=== PATIENT | female | born 1985 | race Hispanic/Latino ===

== ENCOUNTER 2017-08-25 16:56 | Emergency (ER) | payer OTHER ==
[2017-08-25 17:47] LABS: Urine Blood NEGATIVE (NEG); Urine Glucose 2+ (NEG); Urine Protein NEGATIVE (NEG); Urine Specific Gravity 1.015 (1.005-1.030)
[2017-08-25 18:01] LABS: Absolute Lymphocytes (CBC) 1.6 K/uL (0.7-4.9); Absolute Monocytes 0.4 K/uL (0.1-1.3); Absolute Neutrophil 3.1 K/uL (1.8-8.0); Basophils % 0.1 % (0-1.3); Eosinophils % 0.8 % (0-4.4); Hematocrit 42.4 % (36.0-45.0); Lymphocytes % 31.4 % (15.3-44.8); MCH 26.9 pg (27.0-35.0); MCV 81.5 fL (80-100); MPV 8.6 fL (7.6-11.3); Monocytes % 8.4 % (3.3-12.3)
[2017-08-25 18:42] LABS: BUN Blood Urea Nitrogen 14 mg/dL (7-18); Bicarbonate 26 mmol/L (21-32); Glucose Level 327 mg/dL (74-106); HCG, Quantitative 1086 mIU/mL (1-3); Potassium 3.7 mmol/L (3.5-5.1); Sodium Level 135 mmol/L (136-145)
--- NOTE | 2017-08-25 21:38 | ER ---
Nurse's Notes [facility] Name: Tatiana Rouse Age: 31 yrs Sex: Female : 1985 Arrival Date: 08/25/2017 Time: 16:59 Bed 24 Private MD: None, None Diagnosis: Threatened Presentation: 08/25 17:07 Presenting complaint: Patient states: Cramping for the past 3 days, today it became aj1 severe and she began to have vaginal bleeding light pink to bright red bleeding that is intermittent. States that she has had a positive test at home, but her appointment with her OB isnt for 2 weeks. States that she believes she is approximately 8 weeks . Transition of care: patient was not received from another setting of care. Onset of symptoms was August 22, 2017. Risk Assessment: Do you want to hurt yourself or someone else? Patient reports no desire to harm self or others. Initial Sepsis Screen: Does the patient meet any 2 criteria? No. Patient's initial sepsis screen is negative. Does the patient have a suspected source of infection? No. Patient's initial sepsis screen is negative. Care prior to arrival: None. 17:07 Method Of Arrival: Ambulatory aj1 17:07 Acuity: WARREN 3 aj1 Triage Assessment: 17:10 General: Appears in no apparent distress. uncomfortable, Behavior is calm, cooperative, aj1 appropriate for age. Pain: Complains of pain in suprapubic area, right lower quadrant and left lower quadrant Pain radiates to back Pain currently is 8 out of 10 on a pain scale. Quality of pain is described as crampy, Pain began 2-3 days ago. Is intermittent. Neuro: Level of Consciousness is awake, alert, obeys commands, Oriented to person, place, time, situation, Speech is normal, Facial symmetry appears normal. Cardiovascular: Patient's skin is warm and dry. Respiratory: Airway is patent Respiratory effort is even, unlabored, Respiratory pattern is regular, symmetrical. : Reports urinary frequency, vaginal bleeding that is Denies burning with urination. 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 - Social history:: Smoking status: Patient uses tobacco products, 3- 4 cigarettes per day. - Ebola Screening: : Patient denies travel to an Ebola-affected area in the 21 days before illness onset. Screenin:29 Abuse screen: Denies threats or abuse. Denies injuries from another. Nutritional ed1 screening: No deficits noted. Tuberculosis screening: No symptoms or risk factors identified. Fall Risk None identified. Assessment: 17:29 Obstetrical Assessment: General assessment: awake and alert, skin warm and dry, ed1 respirations even and unlabored, Patient reports abdominal cramping, vaginal bleeding. General: Appears uncomfortable, Behavior is calm, cooperative. Pain: Complains of pain in left lower quadrant and right lower quadrant and suprapubic area Pain radiates to back Pain currently is 8 out of 10 on a pain scale. Quality of pain is described as crampy, Pain began 1 day ago. Is continuous. Neuro: Level of Consciousness is awake, alert, obeys commands, Oriented to person, place, time, situation. Cardiovascular: Denies chest pain, Heart tones S1 S2 present. Respiratory: Airway is patent Respiratory effort is even, unlabored, Respiratory pattern is regular, symmetrical, Breath sounds are clear bilaterally. GI: Patient currently denies diarrhea, nausea, vomiting. : Reports vaginal bleeding that is bright red, light flow. EENT: No signs and/or symptoms were reported regarding the EENT system. Derm: Skin is pink, warm \T\ dry. 17:35 General: The previous assessment is accurate, call light remains within reach. . ss 18:42 Reassessment: Patient appears in no apparent distress at this time. No changes from ed1 previously documented assessment. Patient and/or family updated on plan of care and expected duration. Pain level reassessed. Patient is alert, oriented x 3, equal unlabored respirations, skin warm/dry/pink. Patient states symptoms have not improved. 19:52 Reassessment: Patient appears in no apparent distress at this time. No changes from ed1 previously documented assessment. Patient and/or family updated on plan of care and expected duration. Pain level reassessed. Patient is alert, oriented x 3, equal unlabored respirations, skin warm/dry/pink. Patient states symptoms have not improved. 21:49 Reassessment: Patient appears in no apparent distress at this time. No changes from ed1 previously documented assessment. Patient and/or family updated on plan of care and expected duration. Pain level reassessed. Patient is alert, oriented x 3, equal unlabored respirations, skin warm/dry/pink. Patient states symptoms have not improved. Vital Signs: 17:10 BP 142 / 92; Pulse 88; Resp 18; Temp 97.2; Pulse Ox 99% on R/A; Weight 89.81 kg; Height aj1 5 ft. 9 in. (175.26 cm); Pain 8/10; 18:42 BP 139 / 89; Pulse 79; Resp 18; Pulse Ox 97% on R/A; Pain 8/10; ed1 18:43 BP 139 / 89; Pulse 79; Resp 17; Pulse Ox 98% on R/A; mt 19:52 BP 129 / 86; Pulse 71; Resp 18; Pulse Ox 97% on R/A; Pain 6/10; ed1 21:21 BP 124 / 77; Pulse 66; Resp 18; Pulse Ox 97% on R/A; mt 17:10 Body Mass Index 29.24 (89.81 kg, 175.26 cm) aj1 ED Course: 16:59 Patient arrived in ED. sb2 17:00 None, None is Private Physician. sb2 17:09 Triage completed. aj1 17:10 Arm band placed on Patient placed in waiting room, Patient notified of wait time. aj1 17:23 Corinna Marquez LVN is Primary Nurse. ed1 17:27 Orlni Washington NP is PHCP. pm1 17:27 Olman Chow MD is Attending Physician. pm1 17:29 Patient has correct armband on for positive identification. Placed in gown. Bed in low ed1 position. Call light in reach. Side rails up X2. Pulse ox on. NIBP on. 17:56 Inserted saline lock: 20 gauge in right antecubital area, using aseptic technique. mt Blood collected. 18:41 1St Trimest Single 1St Fetus In Process Unspecified. EDMS 21:49 No provider procedures requiring assistance completed. IV discontinued, intact, ed1 bleeding controlled, No redness/swelling at site. Pressure dressing applied. Administered Medications: No medications were administered Outcome: 21:37 Discharge ordered by MD. pm1 21:49 Discharged to home ambulatory. ed1 21:49 Condition: good 21:49 Discharge instructions given to patient, Instructed on discharge instructions, follow up and referral plans. Demonstrated understanding of instructions, follow-up care. 21:51 Patient left the ED. ed1 Signatures: Dispatcher [employer] EDMS Amaris Hardwick, RN RN aj1 Ara Dickey RN RN Corinna Boland, TABLE TENDER TABLE TENDER ed1 Orlin Washington, KAREL BUNG REMOVER pm1 Clarissa Obando mt, Sheri sb2
--- NOTE | 2017-08-25 21:38 | EDPHYS ---
Physician Documentation [facility] Name: Tatiana Rouse Age: 31 yrs Sex: Female : 1985 Arrival Date: 08/25/2017 Time: 16:59 Bed 24 Private MD: None, None ED Physician Olman Chow HPI: 08/25 18:05 This 31 yrs old Female presents to ER via Ambulatory with complaints of pm1 Vaginal Bleeding, + Preg <12wks. 18:05 The patient presents to the emergency department with vaginal bleeding, that is light, pm1 with no clots. 18:05 The estimated gestational age is 8 weeks. course: care: none, Has pm1 appointment. Associated signs and symptoms: Pertinent positives: Abdominal cramping, Pertinent negatives: chest pain, dysuria, fever, nausea, shortness of breath, vomiting. The patient has not recently seen a physician, has an appointment scheduled, tomorrow. 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 - Social history:: Smoking status: Patient uses tobacco products, 3- 4 cigarettes per day. - Ebola Screening: : Patient denies travel to an Ebola-affected area in the 21 days before illness onset. ROS: 18:05 Constitutional: Negative for fever, chills, and weight loss, Eyes: Negative for injury, pm1 pain, redness, and discharge, ENT: Negative for injury, pain, and discharge, Neck: Negative for injury, pain, and swelling, Cardiovascular: Negative for chest pain, palpitations, and edema, Respiratory: Negative for shortness of breath, cough, wheezing, and pleuritic chest pain. 18:05 Back: Negative for injury and pain. 18:05 MS/Extremity: Negative for injury and deformity, Skin: Negative for injury, rash, and discoloration, Neuro: Negative for headache, weakness, numbness, tingling, and seizure. 18:05 Abdomen/GI: Positive for abdominal cramps, Negative for nausea, vomiting, and diarrhea. 18:05 : Positive for vaginal bleeding. Exam: 18:05 Constitutional: This is a well developed, well nourished patient who is awake, alert, pm1 and in no acute distress. Head/Face: Normocephalic, atraumatic. Chest/axilla: Normal chest wall appearance and motion. Nontender with no deformity. No lesions are appreciated. Cardiovascular: Regular rate and rhythm with a normal S1 and S2. No gallops, murmurs, or rubs. Normal PMI, no JVD. No pulse deficits. Respiratory: Lungs have equal breath sounds bilaterally, clear to auscultation and percussion. No rales, rhonchi or wheezes noted. No increased work of breathing, no retractions or nasal flaring. Abdomen/GI: Soft, non-tender, with normal bowel sounds. No distension or tympany. No guarding or rebound. No evidence of tenderness throughout. Back: No spinal tenderness. No costovertebral tenderness. Full range of motion. Skin: Warm, dry with normal turgor. Normal color with no rashes, no lesions, and no evidence of cellulitis. MS/ Extremity: Pulses equal, no cyanosis. Neurovascular intact. Full, normal range of motion. 18:05 Neuro: Orientation: is normal, Motor: is normal, moves all fours, strength is normal, strength is 5/5 in all extremities. Vital Signs: 17:10 BP 142 / 92; Pulse 88; Resp 18; Temp 97.2; Pulse Ox 99% on R/A; Weight 89.81 kg; Height aj1 5 ft. 9 in. (175.26 cm); Pain 8/10; 18:42 BP 139 / 89; Pulse 79; Resp 18; Pulse Ox 97% on R/A; Pain 8/10; ed1 18:43 BP 139 / 89; Pulse 79; Resp 17; Pulse Ox 98% on R/A; mt 19:52 BP 129 / 86; Pulse 71; Resp 18; Pulse Ox 97% on R/A; Pain 6/10; ed1 21:21 BP 124 / 77; Pulse 66; Resp 18; Pulse Ox 97% on R/A; mt 17:10 Body Mass Index 29.24 (89.81 kg, 175.26 cm) aj1 MDM: 17:27 Patient medically screened. pm1 21:31 Data reviewed: vital signs. Data interpreted: Pulse oximetry: on room air is 97 %. pm1 Interpretation: normal. Counseling: I had a detailed discussion with the patient and/or guardian regarding: the historical points, exam findings, and any diagnostic results supporting the discharge/admit diagnosis, lab results, radiology results, the need for outpatient follow up, to return to the emergency department if symptoms worsen or persist or if there are any questions or concerns that arise at home. 08/25 17:27 Order name: Quantitative Hcg; Complete Time: 19:31 pm1 08/25 17:27 Order name: Abo/rh Typing; Complete Time: 19:31 pm1 08/25 17:27 Order name: Basic Metabolic Panel; Complete Time: 19:31 pm1 08/25 17:27 Order name: CBC with Diff; Complete Time: 18:07 pm08/25 17:34 Order name: Urine Dipstick--Ancillary (enter results); Complete Time: 18:07 em1 08/25 17:34 Order name: Urine --Ancillary (enter results); Complete Time: 18:07 em1 08/25 17:27 Order name: Urine Test (obtain specimen); Complete Time: 17:58 pm1 08/25 17:27 Order name: IV Saline Lock; Complete Time: 17:57 pm1 08/25 17:27 Order name: Labs collected and sent; Complete Time: 17:57 pm08/25 17:27 Order name: NPO; Complete Time: 17:57 pm08/25 17:27 Order name: Urine Dipstick-Ancillary (obtain specimen); Complete Time: 17:57 pm1 08/25 18:37 Order name: 1St Trimest Single 1St Fetus EDMS Administered Medications: No medications were administered Disposition: 08/25/17 21:37 Discharged to Home. Impression: Threatened . - Condition is Stable. - Discharge Instructions: Threatened Miscarriage, Pelvic Rest. - Work release form, Medication Reconciliation Form, Thank You Letter form. - Follow up: Emergency Department; When: As needed; Reason: Worsening of condition. Follow up: Private Physician; When: 2 - 3 days; Reason: Recheck today's complaints, Continuance of care, Re-evaluation by your physician. - Problem is new. - Symptoms have improved. Addendum: 08/27/2017 14:52 Co-signature as Attending Physician, Olman Chow MD I agree with the assessment and w a plan of care. Signatures: Dispatcher [employer] [facility] Amaris Hardwick RN RN aj1 Corinna Marquez, QUALITY PROCESS AUDITOR QUALITY PROCESS AUDITOR ed1 Orlin Washington, SEAMING INSPECTOR SEAMING INSPECTOR pm1 Geraldo, MD MARIO Thurman mi Corrections: (The following items were deleted from the chart) 08/25 18:37 18:08 Transvaginal Ob+US.RAD.BRZ ordered. [facility] 21:51 21:37 08/25/2017 21:37 Discharged to Home. Impression: Threatened . Condition ed1 is Stable. Forms are Medication Reconciliation Form, Thank You Letter, Antibiotic Education, Prescription Opioid Use. Follow up: Emergency Department; When: As needed; Reason: Worsening of condition. Follow up: Private Physician; When: 2 - 3 days; Reason: Recheck today's complaints, Continuance of care, Re-evaluation by your physician. Problem is new. Symptoms have improved. pm1
[2017-08-25 22:19] VITALS: TEMP 97.2
[2017-08-25 22:22] VITALS: O2SAT 97
[2017-08-25 22:24] VITALS: BP 124/77
--- NOTE | 2017-08-26 08:47 | RAD REPORT ---
EXAM DESCRIPTION: US - 1St Trimest Single 1St Fetus - 08/25/2017 6:41 pm CLINICAL HISTORY: Vaginal bleeding, Preliminary findings provided at the time of the study. COMPARISON: None. FINDINGS: Due to patient body habitus, endovaginal approach was not technically adequate for visuali zation. Both ovaries are identifiable and normal in size. No dominant solid or cystic ovarian or adnexal find ing. A large bulky uterus is present measuring 14.1 x 5.7 x 8.3 cm. Myometrium is heterogeneous. Patient m ay well have fibroids but none are clearly demarcated to distinguish from the overall heterogeneous m yometrium. No free fluid or blood in the cul-de-sac. In the fundal portion of the endometrial cavity a small oval fluid collection is present. This has th e appearance of an early gestational sac. No pole or yolk sac identifiable. Average sac diamete r corresponds to a 5 week 0 day age. IMPRESSION: Oval fluid collection in the fundal endometrial cavity is believed to be an early 5 week 0 day IUP. No pole or yolk sac yet identifiable. Endometrium is prominent but no suspicious mass or hematoma identifiable. Enlarged bulky uterus with heterogeneous myometrium. Discrete myometrial mass is not identifiable. No ovarian or adnexal abnormality.
== END 2017-08-25 21:51 | disposition home or self-care (01) ==
LOC: ER 16:56
DX: O20.0 Threatened abortion (principal); E11.9 Type 2 diabetes mellitus without complications; F17.210 Nicotine dependence, cigarettes, uncomplicated; Z3A.08 8 weeks gestation of pregnancy
CPT/HCPCS: 36415; 76801; 80048; 81003; 81025; 84702; 85025; 86900; 86901; 99284

== ENCOUNTER 2024-01-17 09:01 | Emergency (ER) | payer OTHER ==
--- OUTSIDE RECORDS SUMMARY | 2024-01-17 09:06 | XMS REPORT | Continuity of Care Document ---
Author Name Unknown Address [address] [facility] [address] [place] [address] [facility] thconnect Address [address] [facility] [address] [place] [address] Care Team Providers Care Visual Communications Instructor Name Role Phone Darryl MARTIN, Keyonna Joseph Primary Care Physician Unavailable ELIGIO ANTONIO Attending Clinician Unavailable ELIZABETH DE LEON Attending Clinician Unava CONNOR Huitron Attending Clinician Unavailable Keyonna Andrews MD Attending Clinician Velma vailable LAB90 Attending Clinician Unavailable BARRY SILVA Attending Clinician Unavailable [email or web address] Attending Clinician UnavailSUSU Bai Attending Clinician Unavailable Susu Cline PA-C Attending Clinician [phone] Unknown, Attending Attending Clinician UnavailCON Peña Attending Clinician Unavailable Con Plunkett MD Attending Clinician [phone] ABHIJEET MOTT Attending Clinician Unavailable Jada Shipley DO Attending Clinician [phone] Abhijeet Mott MD Attending Clinician [phone] STARLA CARRIZALES Attending Clinician Unavailable Joaquin Ortegaia Attending Clinician [phone] UNKNOWN, ATTENDING Attending Clinician Unavailab le Doctor Unassigned, [place] Wells Attending Clinician U robyn Stovall RN, Tristan Attending Clinician Unavailab kimberly Only, Ang Db Test Attending Clinician Unavailjade Purvis SHIFT NURSE MANAGER, Karla Alvarez Attending Clinician + [phone] KARLA PURVIS Attending Clinician Unavailab kimberly Valadez RN, Naye Attending Clinician Unavailable Marty SHIFT NURSE MANAGER, Dl Attending Clinician [phone] DL BOURGEOIS Attending Clinician Unavailable EDWIN TAYLOR Attending Clinician Unavailable Singer BANUELOS, Edwin Attending Clinician [phone] Jayla DE SOUZA, Nasreen Attending Clinician Unavailable Shorty SHIFT NURSE MANAGER, Simran Attending Clinician + SIMRAN HAGEN Attending Clinician Unadinesh Troncoso RN, Rosy Aranda Attending Clinician Unavailab TATIANA Rebollar Attending Clinician Unavailable Nikhil MARTIN, Tatiana Attending Clinician [phone] Omar SHIFT NURSE MANAGER, Drew Attending Clinician [phone] DREW POTTER Attending Clinician Unavailabl MARIA LUISA Patel Attending Clinician Unavailabl NASIR Narayanan Attending Clinician Unavailab REJI Mathew Attending Clinician Unavailabl MCKINLEY Mcdowell Attending Clinician Unavaila BENJI Dick Attending Clinician Unavailable Only, Adc Test Attending Clinician Unavailable Lab, Adc Fam Pob I Attending Clinician Unavailab kimberly Merida MD, Hailee Attending Clinician [phone] Lowell SHIFT NURSE MANAGER, Shari Cortez Attending Clinician [phone] Radha Arias Attending Clinician + Amy MARTIN, Shannon Attending Clinician [phone] [facility] Attending Clinician Israel Casas MD, Hermelinda Avina Attending Clinician [phone] Edgardo SHIFT NURSE MANAGER, J Carlos Yanes Attending Clinician + [phone], David Nst Ultrasound Attending Clinician Unavailable RADHA ROLDAN Attending Clinician Unavail able ELIGIO ANTONIO Admitting Clinician Unavailable [email or web address]_S Admitting Clinician Unavaila CON Espinoza Admitting Clinician Unavailable JADA SHIPLEY Admitting Clinician Unavailab EDWIN King Admitting Clinician Unavailable Hermelinda Casas MD Admitting Clinician Payers Payer Name Policy Type Policy Number Effective Date Expirati on Date Source [employer] MEDICAID [id number] 2018 00:00:00 [employer]ET[employer] MP [employer] S[facility] 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 9 [id number] 2023 00:00:00 Problems Condition Name Condition Details Condition Category Status Onset Date Resolution Date Last Treatment Date Treating Clinician Comments Source Immunodefi ciency due to conditions classified elsewhere (multi HCC) Immunodefi ciency due to conditions classified elsewhere (multi HCC) Disease Active 03-23 00:00: 00 Yojana Seybold - Externa l Well adult exam Well adult exam Disease Active 2022-03 00:00: 00 Yojana Seybold - Externa l DM (diabetes mellitus) (multi HCC) DM (diabetes mellitus) (multi HCC) Disease Active 2022-03 00:00: 00 Yojana Seybold - Externa l Obesity Obesity Disease Active 2022-03 00:00: 00 Yojana Seybold - Externa l DM retinopath y (multi HCC) DM retinopath y (multi HCC) Disease Active 2022-03 00:00: 00 Yojana Seybold - Externa l DM type 2 with diabetic mixed hyperlipid emia (multi HCC) DM type 2 with diabetic mixed hyperlipid emia (multi HCC) Disease Active 2022-03 00:00: 00 Yojana Seybold - Externa l Overweight (BMI 25.0-29.9) Overweight (BMI 25.0-29.9) Disease Active 2022-03 00:00: 00 Yojana Seybold - Externa l Lumbar radiculopa thy Lumbar radiculopa thy Disease Active 4-13 00:00: 00 [facility] Vitamin D deficiency Vitamin D deficiency Disease Active 2019-03- 00:00: 00 [facility] Hypertrigl yceridemia Hypertrigl yceridemia Disease Active 2019-03 00:00: 00 [facility] Low TSH level Low TSH level Disease Active 2019-03 00:00: 00 [facility] History of pancreatit is History of pancreatit is Disease Active 2019-0315 00:00: 00 [facility] Tubal ligation status Tubal ligation status Disease Active 10-10 00:00: 00 [facility] History of depression History of depression Disease Active 2017-03 00:00: 00 [facility] History of back surgery History of back surgery Disease Active 11-04 00:00: 00 [facility] Erythrocyt osis Erythrocyt osis Disease Active 10-15 00:00: 00 [facility] Genital herpes Genital herpes Disease Active 03-08 00:00: 00 Overview: Formattin g of this note might be different from the original. last episode 2013 [facility] Type 2 diabetes mellitus with microalbum inuria, without long-term current use of insulin Type 2 diabetes mellitus with microalbum inuria, without long-term current use of insulin Disease Active 03-08 00:00: 00 [facility] Hypertensi on Hypertensi on Disease Active [facility] Allergies, Adverse Reactions, Alerts Allergy Name Allergy Type Status Severity Reaction(s) Onset Date Inactive Date Treating Clinician Comments Source NO KNOWN ALLERGIE S Drug Class Active [facility] Social History Social Habit Start Date Stop Date Quantity Comments Source History SDOH Alcohol Frequency [facility] History SDOH Alcohol Std Drinks [facility] History SDOH Alcohol Binge [facility] Sexual orientation Devyn Vuong - External History of tobacco use Cigarette Smoker Yojana arredondo - External ASSERTION Possible Yojana Vuong - External History of Occupation Yojana Vuong - External Cigarettes smoked current (pack per day) - Reported 2023-12-28 00:00:00 2023-12-28 00:00:00 Yojana Vuong - External Cigarette pack-years 2023-12-28 00:00:00 2023-12-28 00:00:00 Yojana Vuong - External Tobacco use and exposure 2023-12-28 00:00:00 2023-12-28 00:00:00 Smokeless tobacco non-user Yojana Vuong - External Alcoholic beverage intake 2023-12-28 00:00:00 2023-12-28 00:00:00 Current drinker of alcohol (finding) Yojana Vuong - External Alcohol intake 2023-02-17 00:00:00 2023-02-17 00:00:00 Current drinker of alcohol (finding) Yojana Vuong - External History of Social function 2023-02-17 00:00:00 2023-02-17 00:00:00 Yojana Vuong - External Education 2023-01-19 00:00:00 2023-01-19 00:00:00 13 Yojana Vuong - External Alcohol Comment 2023-01-19 00:00:00 2023-01-19 00:00:00 socially Yojana Vuong - External Sex 2022-12-10 17:52:13 2022-12-10 17:52:13 Female (finding) Yojana Vuong - External Exposure to SARS-CoV-2 (event) 2022-02-14 00:00:00 2022-02-24 23:45:00 Not sure [facility] Tobacco Comment 2017-08-26 00:00:00 2017-08-26 00:00:00 4-5 cigarretes per day [facility] Sex assigned at 1985 00:00:00 1985 00:00:00 Yojana Vuong - External Smoking Status Start Date Stop Date Source Ex-smoker 2023-12-28 00:00:00 2023-12-28 00:00:00 Devyn Vuong - External Smokes tobacco daily 2018-06-10 00:00:00 [facility] Medications Ordered Medication Name Filled Medication Name Start Date Stop Date Current Medication? Ordering Clinician Indication Dosage Frequency Signature (SIG) Comments Components Source Pseudoeph-B romphen-DM 30-2-10 MG/5ML oral Syrup 2023-03 00:00: 00 Yes [id number] 10mL Q.25D Take 10 mL by mouth 4 times daily as needed. Yojana obrien Ibuprofen (MOTRIN) 600 MG oral Tablet 2023-03 00:00: 00 Yes [id number] 600mg Q.25D Take 1 tablet (600 mg total) by mouth every 6 hours as needed for pain or fever. Yojana obrien Azithromyci n 250 MG oral Tablet 2023-03 00:00: 00 01-02 04:59 :00 Yes [id number] Take 2 tablets by mouth on day 1 then 1 tablet by mouth daily for 4 days thereafter .. Yojana obrien glipiZIDE 10 MG oral Tablet 2022-03 00:00: 00 Yes [id number] 10mg Take 1 tablet (10 mg total) by mouth in the morning and 1 tablet (10 mg total) in the evening. Take before meals. Yojana obrien Oseltamivir Phosphate 75 MG oral Capsule 2022-03 00:00: 00 Yes [id number] 75mg QD Take 1 capsule (75 mg total) by mouth daily. Yojana obrien Blood Glucose Monitoring Suppl (Blood Glucose Monitor System) w/Device does not apply Kit 2022-03 00:00: 00 Yes Check BS twice daily. Yojana obrien Glucose Blood in vitro Strip 2022-03 00:00: 00 Yes [id number] 1{each} QD 1 each by other route daily Check BS twice daily. Yojana obrien Lancets 33G does not apply Misc 2022-03 00:00: 00 Yes [id number] 1{appli cation} Q.5D 1 Applicatio n by does not apply route 2 times daily. Yojana obrien glipiZIDE 10 MG oral Tablet 2022-03 00:00: 00 Yes [id number] 10mg Take 1 tablet (10 mg total) by mouth in the morning and 1 tablet (10 mg total) in the evening. Take before meals. Yojana obrien Fenofibrate 48 MG oral Tablet 2022-03 00:00: 00 Yes [id number] 3 48mg QD Take 1 tablet (48 mg total) by mouth daily. Yojana obrien glipiZIDE 5 MG oral Tablet 2022-0316 00:00: 00 02-17 00:00 :00 No [id number] 3 5mg Take 1 tablet (5 mg total) by mouth daily (before a meal). Yojana obrien glipiZIDE 5 MG oral Tablet 2022-03 00:00: 00 Yes [id number] 3 5mg Take 1 tablet (5 mg total) by mouth daily (before a meal). Yojana obrien Glucose Blood in vitro Strip 2022-03 00:00: 00 Yes [id number] 3 1{each} 1 each by other route daily Check BS twice daily. Yojana obrien Lancets 33G does not apply Misc 2022-03 00:00: 00 Yes [id number] 3 1{appli cation} 1 Applicatio n by does not apply route 2 times daily. Yojana obrien bromphenira mine-pseudo ephedrine-D M (BROMFED DM) 2-30-10 mg/5 mL syrup 08-20 00:00: 00 Yes [id number] 5mL Take 5 mL by mouth 3 (three) times daily as needed for Cough. [facility] amoxicillin 500 mg capsule 08-20 00:00: 00 08-28 04:59 :00 No [id number] 500mg Take 1 capsule by mouth in the morning and 1 capsule in the evening. Do all this for 7 days. [facility] NaCl 0.9% (NS) bolus infusion 1,000 mL 2021-03 08:15: 00 02-25 08:50 :00 No 1000mL at 999 mL/hr, 1,000 mL, IV Piggyback, ONCE, 1 dose, On Wed02/25/22 at 0215, STAT [facility] iopamidol (ISOVUE 370-500 mL) injection 75 mL 2021-03 08:15: 00 02-25 08:15 :00 No [id number] 75mL 75 mL, Intravenou s, ONCE, 1 dose, On Wed02/25/22 at 0215, Routine [facility] NaCl 0.9% (NS) bolus infusion 1,000 mL 2021-03 06:45: 00 02-25 07:10 :00 No 1000mL at 999 mL/hr, 1,000 mL, IV Piggyback, ONCE, 1 dose, On Wed02/25/22 at 0045, STAT [facility] ondansetron (ZOFRAN (PF)) injection 8 mg 2021-03 06:00: 00 02-25 06:07 :00 No 8mg 8 mg, Slow IV Push, ONCE, 1 dose, On Wed02/25/22 at 0000, JOSAFAT [facility] proMETHazin e (PHENERGAN) 25 mg in NaCl 0.9% (NS) 50 mL IV piggyback 2021-03 06:00: 00 02-25 06:07 :00 No 25mg 25 mg, IV Piggyback, ONCE, 1 dose, On Wed02/25/22 at 0000, JOSAFAT [facility] ondansetron 8 mg disintegrat ing tablet 2021-03 00:00: 00 Yes [id number] 8mg Take 1 tablet by mouth every 8 (eight) hours as needed for Nausea and Vomiting (N/V). [facility] insulin regular human (HUMULIN R) injection 3 Units 2021-03 14:00: 00 12-19 13:09 :00 No 3U 3 Units, Slow IV Push, ONCE, 1 dose, On Wed12/19/21 at 0900, STAT
In dication for insulin: Hyperglyce stella [facility] FENTanyl PF (SUBLIMAZE (PF)) injection 50 mcg 2021-03 014 12:45: 00 12-19 12:15 :00 No 50ug 50 mcg, Slow IV Push, ONCE, 1 dose, On Wed12/19/21 at 0745, Routine [facility] FENTanyl PF (SUBLIMAZE (PF)) injection 50 mcg 2021-03 0-14 11:15: 00 12-19 10:21 :00 No 50ug 50 mcg, Slow IV Push, ONCE, 1 dose, On Wed12/19/21 at 0615, Routine [facility] ketorolac (TORADOL) injection 15 mg 2021-03 11:00: 00 12-19 11:03 :00 No 15mg 15 mg, Slow IV Push, ONCE, 1 dose, On Wed12/19/21 at 0600, JOSAFAT [facility] iopamidol (ISOVUE 370-500 mL) injection 65 mL 2021-03 11:00: 00 12-19 11:00 :00 No [id number] 65mL 65 mL, Intravenou s, ONCE, 1 dose, On Wed12/19/21 at 0600, Routine [facility] FENTanyl PF (SUBLIMAZE (PF)) injection 50 mcg 2021-03 10:00: 00 12-19 09:10 :00 No 50ug 50 mcg, Slow IV Push, ONCE, 1 dose, On Wed12/19/21 at 0500, Routine [facility] NaCl 0.9% (NS) bolus infusion 1,000 mL 2021-03 09:45: 00 12-19 12:00 :00 No 1000mL at 999 mL/hr, 1,000 mL, IV Infusion, ONCE, 1 dose, On Wed12/19/21 at 0445, JOSAFAT [facility] ondansetron (ZOFRAN (PF)) injection 4 mg 2021-03 09:00: 00 12-19 08:55 :00 No 4mg 4 mg, Slow IV Push, ONCE, 1 dose, On Wed12/19/21 at 0400, JOSAFAT [facility] morpHINE (4 mg/mL) injection 4 mg 2021-03 09:00: 00 12-19 08:55 :00 No 4mg 4 mg, Slow IV Push, ONCE, 1 dose, On Wed12/19/21 at 0400, STAT [facility] metFORMIN 500 mg tablet 2021-03 00:00: 00 Yes [id number] 500mg Take 1 tablet by mouth in the morning and 1 tablet in the evening. [facility] naproxen 500 mg tablet 2021-03 014 00:00: 00 12-30 04:59 :00 No [id number] 500mg Take 1 tablet by mouth in the morning and 1 tablet in the evening. Take with meals. Do all this for 10 days. [facility] acetaminoph en (TYLENOL) tablet 975 mg 10-07 18:45: 00 10-07 17:41 :00 No [id number] 975mg [facility] ibuprofen (IBU) tablet 800 mg 10-07 18:45: 00 10-07 17:41 :00 No [id number] 800mg [facility] meloxicam (MOBIC) 15 mg tablet 10-07 00:00: 00 10-18 04:59 :00 No [id number] 15mg Take 1 tablet by mouth in the morning for 10 days. [facility] traMADoL 50 mg tablet 10-07 00:00: 00 10-13 04:59 :00 No [id number] 50mg Take 1 tablet by mouth every 6 (six) hours for 5 days. Indication s: acute pain [facility] ondansetron 4 mg disintegrat ing tablet 03-20 00:00: 00 02-25 00:00 :00 No [id number] 4mg Take 1 tablet by mouth every 8 (eight) hours as needed for Nausea and Vomiting (N/V). [facility] cyclobenzap rine 10 mg tablet 07-05 00:00: 00 Yes [id number] 10mg Take 1 tablet by mouth 3 (three) times daily. [facility] acetaminoph en 325 mg tablet 06-19 00:00: 00 Yes [id number] 325mg Take 1 tablet by mouth every 6 (six) hours as needed for Pain (scale 1-3) or Pain (scale 4-6) for up to 30 doses. [facility] gabapentin 100 mg capsule 09 00:00: 00 Yes [id number] 200mg Take 2 capsules by mouth 3 (three) times daily. [facility] ketorolac 10 mg tablet 06-14 00:00: 00 Yes [id number] 10mg Take 1 tablet by mouth every 6 (six) hours as needed for Pain (scale 7-10). [facility] cyclobenzap rine 10 mg tablet 06-14 00:00: 00 Yes [id number] 10mg Take 1 tablet by mouth 3 (three) times daily. [facility] methylPREDN ISolone (MEDROL, JESSE,) 4 mg tablets 06-12 00:00: 00 Yes [id number] Take by mouth SEE-INSTRU CTIONS. follow package directions [facility] gabapentin 300 mg capsule 06-12 00:00: 00 Yes [id number] 300mg Take 1 capsule by mouth 3 (three) times daily. [facility] Fenofibrate Nanocrystal lized 160 mg tablet 06-12 00:00: 00 Yes [id number] 160mg Take 1 tablet by mouth daily. [facility] cyclobenzap rine 10 mg tablet 05-27 00:00: 00 Yes [id number] 10mg Take 1 tablet by mouth at bedtime. [facility] lisinopriL 2.5 mg tablet 05-27 00:00: 00 Yes [id number] 2.5mg Take 1 tablet by mouth daily. [facility] naproxen sodium (ANAPROX DS) 550 mg tablet 05-27 00:00: 00 08-20 00:00 :00 No [id number] 550mg Take 1 tablet by mouth 2 (two) times daily with meals as needed (pain or inflammati on). [facility] METFORMIN 1,000 mg tablet 2019-03 00:00: 00 12-19 00:00 :00 No [id number] TAKE 1 TABLET BY MOUTH TWICE A DAY WITH MEALS [facility] Immunizations Ordered Immunization Name Filled Immunization Name Date Status Comments Source TDAP (ADACEL) VACCINE 2019-02-09 00:00:00 Completed [facility] TDAP (ADACEL) VACCINE 2019-02-09 00:00:00 Completed [facility] TDAP (ADACEL) VACCINE 2019-02-09 00:00:00 Completed [facility] TDAP (ADACEL) VACCINE 2019-02-09 00:00:00 Completed [facility] TDAP (ADACEL) VACCINE 2019-02-09 00:00:00 Completed [facility] TDAP (ADACEL) VACCINE 2019-02-09 00:00:00 Completed [facility] TDAP (ADACEL) VACCINE 2019-02-09 00:00:00 Completed [facility] Influenza Virus Vaccine Quad .5 mL IM 6+ MO 2018-12-26 00:00:00 Completed [facility] Influenza Virus Vaccine Quad .5 mL IM 6+ MO 2018-12-26 00:00:00 Completed [facility] Influenza Virus Vaccine Quad .5 mL IM 6+ MO 2018-12-26 00:00:00 Completed [facility] Influenza Virus Vaccine Quad .5 mL IM 6+ MO 2018-12-26 00:00:00 Completed [facility] Influenza Virus Vaccine Quad .5 mL IM 6+ MO 2018-12-26 00:00:00 Completed [facility] Influenza Virus Vaccine Quad .5 mL IM 6+ MO 2018-12-26 00:00:00 Completed [facility] Influenza Virus Vaccine Quad .5 mL IM 6+ MO 2018-12-26 00:00:00 Completed [facility] TDAP 2018-02-21 00:00:00 Completed [facility] TDAP 2018-02-21 00:00:00 Completed [facility] TDAP 2018-02-21 00:00:00 Completed [facility] TDAP 2018-02-21 00:00:00 Completed [facility] TDAP 2018-02-21 00:00:00 Completed [facility] TDAP 2018-02-21 00:00:00 Completed [facility] TDAP 2018-02-21 00:00:00 Completed [facility] Influenza Virus Vaccine Quad .5 mL IM 6+ MO 2017-12-09 00:00:00 Completed [facility] Influenza Virus Vaccine Quad .5 mL IM 6+ MO 2017-12-09 00:00:00 Completed [facility] Influenza Virus Vaccine Quad .5 mL IM 6+ MO 2017-12-09 00:00:00 Completed [facility] Influenza Virus Vaccine Quad .5 mL IM 6+ MO 2017-12-09 00:00:00 Completed [facility] Influenza Virus Vaccine Quad .5 mL IM 6+ MO 2017-12-09 00:00:00 Completed [facility] Influenza Virus Vaccine Quad .5 mL IM 6+ MO 2017-12-09 00:00:00 Completed [facility] Influenza Virus Vaccine Quad .5 mL IM 6+ MO 2017-12-09 00:00:00 Completed [facility] MMR 2008-09-20 00:00:00 Completed [facility] MMR 2008-09-20 00:00:00 Completed [facility] MMR 2008-09-20 00:00:00 Completed [facility] MMR 2008-09-20 00:00:00 Completed [facility] MMR 2008-09-20 00:00:00 Completed [facility] MMR 2008-09-20 00:00:00 Completed [facility] MMR 2008-09-20 00:00:00 Completed [facility] MMR- Measles, Mumps, Rubella Unknown Completed Yojana Kohliybol d - External Tdap- (Boostrix, Adacel) Unknown [facility] Influ[facility] Virus Vaccine, No Preserv, age 6 months and up Unknown Completed Yojana Seybold - External MMR- Measles, Mumps, Rubella Unknown Completed Yojana Seybol d - External Tdap- (Boostrix, Adacel) Unknown Completed Yojana Vargasold - External Influenza Virus Vaccine, No Preserv, age 6 months and up Unknown Completed Yojana Seybold - External MMR- Measles, Mumps, Rubella Unknown Completed Yojana Seybol d - External Tdap- (Boostrix, Adacel) Unknown Completed Yojana Seybold - External MMR Unknown Completed [facility] Influenza Virus Vaccine Quad .5 mL IM 6+ MO (FLUZONE/FLULAVAL/F LUARIX) Unknown Completed [facility] TDAP Unknown Completed [facility] MMR Unknown Completed [facility] Influenza Virus Vaccine Quad .5 mL IM 6+ MO (FLUZONE/FLULAVAL/F LUARIX) Unknown Completed [facility] TDAP Unknown Completed [facility] MMR Unknown Completed [facility] Influenza Virus Vaccine Quad .5 mL IM 6+ MO (FLUZONE/FLULAVAL/F LUARIX) Unknown Completed [facility] Influenza Virus Vaccine, No Preserv, age 6 months and up Unknown Completed Yojana Seybold - External Vital Signs Vital Name Observation Time Observation Value Comments S ource BMI 2023-12-28 15:01:00 28.49 kg/m2 Basia ey Seybold - External Oxygen saturation in Arterial blood by Pulse oximetry 2023-12-28 15:01:00 98 /min Yojana Seybo ld - External Systolic blood pressure 2023-12-28 15:01:00 134 mm[Hg] Yojana Seybo ld - External Diastolic blood pressure 2023-12-28 15:01:00 84 mm[Hg] Yojana Seybo ld - External Heart rate 2023-12-28 15:01:00 78 /min Kelse y Seybold - External Body temperature 2023-12-28 15:01:00 37.33 Felipa Yojana Seybold - External Respiratory rate 2023-12-28 15:01:00 18 /min Yojana Seybold - External Body height 2023-12-28 15:01:00 172.7 cm Basia ey Seybold - External Body weight 2023-12-28 15:01:00 84.993 kg Basia ey Seybold - External Systolic blood pressure 2023-02-17 17:29:00 122 mm[Hg] Yojana Seybo ld - External Diastolic blood pressure 2023-02-17 17:29:00 70 mm[Hg] Yojana Seybo ld - External Heart rate 2023-02-17 17:29:00 70 /min Kelse y Seybold - External Body temperature 2023-02-17 17:29:00 36.67 Felipa Yojana Seybold - External Respiratory rate 2023-02-17 17:29:00 15 /min Yojana Seybold - External Body height 2023-02-17 17:29:00 172.7 cm Basia ey Seybold - External Body weight 2023-02-17 17:29:00 87.907 kg Basia ey Seybold - External BMI 2023-02-17 17:29:00 29.47 kg/m2 Basia ey Seybold - External Oxygen saturation in Arterial blood by Pulse oximetry 2023-02-17 17:29:00 100 /min Yojana Vargaso ld - External Systolic blood pressure 2023-01-19 19:30:00 115 mm[Hg] Yojana Seybo ld - External Diastolic blood pressure 2023-01-19 19:30:00 73 mm[Hg] Yojana Seybo ld - External Heart rate 2023-01-19 19:30:00 78 /min oLrna y Seybold - External Body temperature 2023-01-19 19:30:00 37.06 Felipa Yojana Seybold - External Respiratory rate 2023-01-19 19:30:00 18 /min Yojana Kohliybold - External Body height 2023-01-19 19:30:00 172.7 cm Basia ey Seybold - External Body weight 2023-01-19 19:30:00 89.812 kg Basia ey Seybold - External BMI 2023-01-19 19:30:00 30.11 kg/m2 Basia mallory Seybold - External Oxygen saturation in Arterial blood by Pulse oximetry 2023-01-19 19:30:00 99 /min Yojana Vargaso ld - External Systolic blood pressure 2022-08-20 23:44:00 135 mm[Hg] [facility] Diastolic blood pressure 2022-08-20 23:44:00 85 mm[Hg] [facility] Heart rate 2022-08-20 23:43:00 75 /[facility] 2022-08-20 23:43:00 36.89 Felipa [facility] Respiratory rate 2022-08-20 23:43:00 18 /min [facility] Body height 2022-08-20 23:43:00 175.3 cm [facility] Body weight 2022-08-20 23:43:00 88.179 kg [facility] BMI 2022-08-20 23:43:00 28.71 kg/m2 [facility] hospital Oxygen saturation in Arterial blood by Pulse oximetry 2022-08-20 23:43:00 97 /min [facility] Systolic blood pressure 2022-02-25 08:00:00 142 mm[Hg] [facility] Diastolic blood pressure 2022-02-25 08:00:00 83 mm[Hg] [facility] Heart rate 2022-02-25 08:00:00 65 /min [facility] [place] [facility] Respiratory rate 2022-02-25 08:00:00 22 /min [facility] Oxygen saturation in Arterial blood by Pulse oximetry 2022-02-25 08:00:00 99 /min [facility] Body temperature 2022-02-25 05:47:00 37.17 Felipa [facility] Body height 2022-02-25 05:47:00 175.3 cm General acute hospital Body weight 2022-02-25 05:47:00 87.091 kg General acute hospital BMI 2022-02-25 05:47:00 28.35 kg/m2 General acute hospital Systolic blood pressure 2021-12-19 14:45:00 124 mm[Hg] [facility] Diastolic blood pressure 2021-12-19 14:45:00 80 mm[Hg] [facility] Heart rate 2021-12-19 14:45:00 82 /min [facility] Body temperature 2021-12-19 14:45:00 37 Felipa [facility] Respiratory rate 2021-12-19 14:45:00 16 /min [facility] Oxygen saturation in Arterial blood by Pulse oximetry 2021-12-19 14:45:00 98 /min [facility] Body height 2021-12-19 08:51:00 175.3 cm [facility] Body weight 2021-12-19 08:51:00 90.719 kg General acute hospital BMI 2021-12-19 08:51:00 29.53 kg/m2 General acute hospital Systolic blood pressure 2021-10-07 17:29:00 152 mm[Hg] [facility] Diastolic blood pressure 2021-10-07 17:29:00 93 mm[Hg] [facility] Heart rate 2021-10-07 17:29:00 88 /min [facility] Body temperature 2021-10-07 17:29:00 37.06 Felipa [facility] Respiratory rate 2021-10-07 17:29:00 18 /min [facility] Body height 2021-10-07 17:29:00 175.3 cm General acute hospital Body weight 2021-10-07 17:29:00 92.987 kg General acute hospital BMI 2021-10-07 17:29:00 30.27 kg/m2 General acute hospital Oxygen saturation in Arterial blood by Pulse oximetry 2021-10-07 17:29:00 98 /min [facility] Procedures Procedure Date / Time Performed Performing Clinician Source POCT MOLECULAR STREP 2022-08-20 23:51:00 Unknown, Atte nding [facility] POCT SARS-COV-2 ANTIGEN (BINAX NOW) 2022-08-20 00:00:00 Susu Cline [facility] CT ABDOMEN PELVIS W CONTRAST 2022-02-25 07:25:33 Con Plunkett [facility] URINE DRUG (IMMUNOASSAY) - COMPREHENSIVE DRUG SCREEN 2022-02-25 06:15:00 Con Plunkett [facility] URINALYSIS 2022-02-25 06:15:00 Con Plunkett [facility] ACUTE CARE VENOUS BLOOD GAS 2022-02-25 06:02:00 Con Plunkett [facility] LIPASE 2022-02-25 06:01:00 Con Plunkett [facility] TEST, SERUM 2022-02-25 06:01:00 Con Plunkett [facility] COMP. METABOLIC PANEL (89494) 2022-02-25 06:01:00 Con Plunkett [facility] CBC WITH DIFF 2022-02-25 06:01:00 [facility] CONSENT/REFUSAL FOR DIAGNOSIS AND TREATMENT 2022-02-25 05:42:25 Doctor Unassigned, [place] [facility] POCT GLUCOSE (AUTOMATED) 2021-12-19 14:53:00 Jada Shipley [facility] POCT GLUCOSE (AUTOMATED) 2021-12-19 12:19:00 Jada Shipley [facility] CT ABDOMEN PELVIS W CONTRAST 2021-12-19 10:18:39 Jada Shipley [facility] US PELVIS COMPLETE WITH TRANSVAGINAL 2021-12-19 10:15:25 Jada Shipley [facility] POCT TEST 2021-12-19 09:15:00 Shantel Shipley ra [facility] URINALYSIS 2021-12-19 09:12:00 [facility] 2021-12-19 08:55:00 [facility] TEST, SERUM 2021-12-19 08:55:00 Sa richar Shipley [facility] COMP. METABOLIC PANEL (13102) 2021-12-19 08:55:00 Jada Shipley [facility] CBC WITH DIFF 2021-12-19 08:55:00 Jada Shipley [facility] CONSENT/REFUSAL FOR DIAGNOSIS AND TREATMENT 2021-12-19 08:44:19 Doctor Unassigned, [place] [facility] XR FOOT 3+ VW LEFT 2021-10-07 17:57:53 Starla Carrizales [facility] XR ANKLE 3+ VW LEFT 2021-10-07 17:57:35 Starla Carrizales [facility] XR HIPS 2 VW LEFT 2021-10-07 17:57:20 Starla Carrizales [facility] Encounters Start Date/Time End Date/Time Encounter Type Admission Type Attending Clinicians Care Facility Care Department Encounter ID Source 2021-01-05 11:39:01 Inpatient ELIGIO ANTONIO [facility] SNS [id number] [facility] 2021-01-05 06:48:10 Emergency [facility] [id number] [facility] 2021-01-04 00:44:43 Emergency [facility] [id number] [facility] 2023-12-28 10:30:00 2023-12-28 10:30:00 Outpatient ELIZABETH DE LEON [facility]OJA[facility] DUNCAN [id number] Yojana Vuong 2023-12-10 00:00:00 2023-12-10 00:00:00 Outpatient CONNOR FERRELL [facility]JA[facility] DUNCAN [id number] Yojana Carolann 2018-02-14 00:00:00 2023-08-24 02:28:03 Mobile Device Encounter Darryl Keyonna Joseph [facility] 1.2.840.114 350.1.13.10 4.2.7.2.686 [id number] [facility] 2023-07-15 00:00:00 2023-07-15 00:00:00 Outpatient CONNOR FERRELL [facility]JA[facility] DUNCAN [id number] Yojana Vuong 2023-02-22 00:00:00 2023-02-22 00:00:00 Outpatient PREZASCONNOR YOJANA DUNCAN [id number] Yojana Vuong 2023-02-17 11:30:00 2023-02-17 11:30:00 Outpatient PREZASCONNOR YOJANA DUNCAN [id number] Yojana Vuong 2023-02-09 00:00:00 2023-02-09 00:00:00 Outpatient PREZACONNOR Dominguez [facility] DUNCAN [id number] Yojana Vuong 2023-02-04 00:00:00 2023-02-04 00:00:00 Outpatient PREZACONNOR Dominguez [facility]UNC[facility] [id number] Yojana Vuong 2023-02-03 09:25:00 2023-02-03 09:25:00 Outpatient LAB90 YOJANA DUNCAN [id number] Yojana Vuong 2023-01-29 00:00:00 2023-01-29 00:00:00 Outpatient PREZAAngelica CONNOR DUNCAN [id number] Yojana Vuong 2023-01-22 00:00:00 2023-01-22 00:00:00 Outpatient BARRY SILVA [id number] [facility] 2023-01-19 13:30:00 2023-01-19 13:30:00 Outpatient CONNOR FERRELL [id number] Yojana Vuong 2023-01-02 00:00:00 2023-01-02 00:00:00 Outpatient GC_GCBZW_Ka diyala_S [facility] [id number] [facility] 2022-09-01 16:33:28 2022-09-01 16:33:28 Outpatient [facility] [id number] Kenn Nelson 2022-08-20 18:40:00 2022-08-20 19:05:15 Outpatient R SUSU CLINE [facility] [id number] [facility] 2022-08-20 18:40:00 2022-08-20 19:05:15 Urgent Care Susu Cline Unknown, Attending [facility] 1..840.114 350.1.13.10 4.2.7.2.686 [id number] [facility] 2022-02-24 23:45:00 2022-02-25 02:49:00 Emergency X CON PLUNKETT [facility] ERT [id number] [facility] 2022-02-24 23:45:00 2022-02-25 02:49:00 Emergency Con Plunkett [facility] 1..840.114 350.1.13.10 4.2.7.2.686 [id number] [facility] 2021-12-19 03:52:00 2021-12-19 10:17:00 Emergency X ABHIJEET MOTT [facility] ERT [id number] [facility] 2021-12-19 03:52:00 2021-12-19 10:17:00 Emergency Jada Shipley Donnell [facility] 1..840.114 350.1.13.10 4.2.7.2.686 [id number] [facility] 2021-10-07 12:35:57 2021-10-07 23:59:00 Outpatient R STARLA CARRIZALES [facility] [id number] [facility] 2021-10-07 12:35:57 2021-10-07 23:59:00 Hospital Encounter Starla Carrizales [facility] 1.2.840.114 350.1.13.10 4.2.7.2.686 [id number] [facility] 2021-10-07 12:35:57 2021-10-07 23:59:00 Hospital Encounter Starla Carrizales [facility] 1.2.840.114 350.1.13.10 4.2.7.2.686 [id number] [facility] 2021-10-07 12:35:56 2021-10-07 23:59:00 Hospital Encounter Starla Carrizales [facility] 1.2.840.114 350.1.13.10 4.2.7.2.686 [id number] [facility] 2021-10-07 13:00:00 2021-10-07 13:10:28 Outpatient R UNKNOWN, ATTENDING [facility] [id number] [facility] 2021-10-07 13:00:00 2021-10-07 13:10:28 Urgent Care Starla Carrizales Unknown, Attending [facility] 1.2.840.114 350.1.13.10 4.2.7.2.686 [id number] [facility] 2021-10-07 12:30:00 2021-10-07 12:30:00 Outpatient R [facility] [id number] [facility] 2021-10-07 00:00:00 2021-10-07 00:00:00 Orders Only Doctor Unassigned, [place] [facility] 1.2840.114 350.1.13.10 4.2.7.2.686 [id number] [facility] 2021-09-21 00:00:00 2021-09-21 00:00:00 Letter (Out) Tristan Stovall [facility] 1.2840.114 350.1.13.10 4.2.7.2.686 [id number] [facility] 2021-09-20 15:30:00 2021-09-20 15:45:00 Laboratory Only Only, Ang Db Test Karla Purvis [facility] 1.2840.114 350.1.13.10 4.2.7.2.686 [id number] [facility] 2021-09-20 15:30:00 2021-09-20 15:30:00 Outpatient R KARLA PURVIS [facility] [id number] [facility] 2021-09-15 00:00:00 2021-09-15 [facility]:00[facility] 1.20.114 350.1.13.10 4.2.7.2.686 [id number] [facility] 2021-09-15 00:00:00 2021-09-15 00:00:00 [facility] 1.2840.114 350.1.13.10 4.2.7.2.686 [id number] [facility] 2021-09-15 00:00:00 2021-09-15 00:00:00 [facility] 1.2840.114 350.1.13.10 4.2.7.2.686 [id number] [facility] 2021-09-15 00:00:00 2021-09-15 00:00:00 Patient Secure Msg Doctor Unassigned, [place] [facility] 1.114 350.1.13.10 4.2.7.2.686 [id number] [facility] 2021-09-14 10:00:00 2021-09-14 10:15:00 Laboratory Only Only, Ang Db Test Marty [facility] MEDICAL OFFICE BUILDING 1.114 350.1.13.10 4.2.7.2.686 [id number] [facility] 2021-09-14 10:00:00 2021-09-14 10:00:00 Outpatient R MARTY [facility] [id number] [facility] 2021-09-14 09:30:00 2021-09-14 09:30:00 Outpatient R STARLA CARRIZALES [facility] [id number] [facility] 2021-03-20 12:21:00 2021-03-20 14:30:00 Emergency X [facility] [id number] [facility] 2021-03-20 12:21:00 2021-03-20 14:30:00 Emergency Edwin [facility] 1.114 350.1.13.10 4.2.7.2.686 [id number] [facility] 2021-02-26 00:00:00 2021-02-26 00:00:[address] [facility] 1.114 350.1.13.10 4.2.7.2.686 [id number] [facility] 2021-02-25 09:30:00 2021-02-25 09:45:00 Laboratory Only Only, Ang Db Test [facility] 1..114 350.1.13.10 4.2.7.2.686 [id number] [facility] 2021-02-25 09:30:00 2021-02-25 09:30:00 Outpatient R EDVIN SIMRAN Dominguez [facility] [id number] [facility] 2020-11-14 00:00:00 2020-11-14 00:00:00 Letter (Out) Rosy Troncoso [facility] 1..840.114 350.1.13.10 4.2.7.2.686 [id number] [facility] 2020-11-13 12:47:25 2020-11-13 13:07:25 Laboratory Only Only, Ang Db Test Unknown, Attending [facility] Medical Office Building 1.2.840.114 350.1.13.10 4.2.7.2.686 [id number] [facility] 2020-11-13 13:00:00 2020-11-13 13:00:00 Outpatient R UNKNOWN, ATTENDING [facility] [id number] [facility] 2020-11-11 15:00:00 2020-11-11 15:00:00 Outpatient R TATIANA TEJEDA [facility] [id number] [facility] 2020-10-30 11:16:55 2020-10-30 11:36:55 Urgent Care Tatiana Tejeda [facility] 1.2.840.114 350.1.13.10 4.2.7.2.686 [id number] [facility] 2020-10-30 11:00:00 2020-10-30 11:00:00 Outpatient R DREW POTTER [facility] [id number] [facility] 2020-10-16 09:40:00 2020-10-16 09:40:00 Outpatient R DREW POTTER [facility] [id number] [facility] 2020-07-25 10:20:00 2020-07-25 10:20:00 Outpatient R [facility] [id number] [facility] 2020-07-05 13:00:00 2020-07-05 13:00:00 Outpatient R ELIGIO ANTONIO [facility] [id number] [facility] 2020-06-17 14:30:00 2020-06-17 14:30:00 Outpatient R MARIA LUISA DECKER [facility] [id number] [facility] 2020-06-14 11:30:00 2020-06-14 11:30:00 Outpatient R ELIGIO ANTONIO [facility] [id number] [facility] 2020-06-13 00:00:00 2020-06-13 00:00:00 Outpatient NASIR MONTERROSO [facility] [id number] [facility] 2020-06-12 10:30:00 2020-06-12 10:30:00 Outpatient NASIR MONTERROSO [facility] [id number] [facility] 2020-06-10 17:20:00 2020-06-10 17:20:00 Outpatient R REJI STILL [facility] [id number] [facility] 2020-05-27 13:00:00 2020-05-27 13:00:00 Outpatient R REJI STILL [facility] [id number] [facility] 2020-05-27 08:15:00 2020-05-27 08:15:00 Outpatient R MCKINLEY NICK [facility] [id number] [facility] 2020-05-14 13:00:00 2020-05-14 13:00:00 Outpatient R DREW POTTER [facility] [id number] [facility] 2020-04-29 13:00:00 2020-04-29 13:00:00 Outpatient BENJI ZAIDI [facility] [id number] [facility] 2020-04-16 13:20:00 2020-04-16 13:20:00 Outpatient R BENJI HODGES [facility] [id number] [facility] 2020-02-20 10:00:00 2020-02-20 10:00:00 Outpatient R MCKINLEY NICK [facility] [id number] [facility] 2020-01-16 10:40:00 2020-01-16 10:40:00 Outpatient R BENJI HODGES [facility] [id number] [facility] 2019-12-29 13:13:00 2019-12-29 16:36:00 Emergency Jada Shipley [facility] 1.840.114 350.1.13.10 4.2.7.2.686 [id number] 2019-12-25 10:45:18 2019-12-25 11:00:18 Laboratory Only Only, Adc Test [facility] 1..840.114 350.1.13.10 4.2.7.2.686 [id number] 2019-12-25 10:30:00 2019-12-25 10:30:00 Outpatient R [facility] [id number] [facility] 2019-12-25 00:00:00 2019-12-25 00:00:00 Orders Only Doctor Unassigned, [place] [facility] 1.84.114 350.1.13.10 4.2.7.2.686 [id number] 2019-09-20 00:00:00 2019-09-20 00:00:00 Patient Secure Msg Doctor Unassigned, [place] [facility] MEDICAL SUPERVISOR [facility] 1.84.114 350.1.13.10 4.2.7.2.686 [id number] [facility] 2019-09-18 16:35:04 2019-09-18 16:55:04 Laboratory Only Lab, Adc Fam Pob I [facility] Professio nal Office Building One 1.2.840.114 350.1.13.10 4.2.7.2.686 [id number] 2019-09-18 16:40:00 2019-09-18 16:40:00 Outpatient R [facility] [id number] [facility] 2019-05-02 00:00:00 2019-05-02 00:00:00 [facility] 1.2.840.114 350.1.13.10 4.2.7.2.686 [id number] 2019-04-30 00:00:00 2019-04-30 00:00:00 Refill [facility] 1.2.840.114 350.1.13.10 4.2.7.2.686 [id number] 2019-04-27 13:56:18 2019-04-27 14:28:16 Routine Visit Shari Shipley [facility] MEDICAL SUPERVISOR [facility] CHILD [facility] 1.2.840.114 350.1.13.10 4.2.7.2.686 [id number] 2019-04-26 00:00:00 2019-04-26 00:00:00 Refill Radha Roldan [facility] CHILD [facility] 1.2.840.114 350.1.13.10 4.2.7.2.686 [id number] 2019-04-18 00:00:00 2019-04-18 00:00:[address] [facility] 1.2.840.114 350.1.13.10 4.2.7.2.686 [id number] 2019-04-10 09:10:16 2019-04-10 09:58:15 [facility] 1.2.840.114 350.1.13.10 4.2.7.2.686 [id number] 2019-04-03 01:12:00 2019-04-04 17:35:00 Hospital Encounter Hermelinda Casas [facility] 1.2.840.114 350.1.13.10 4.2.7.2.686 [id number] 2019-04-03 00:00:00 2019-04-03 00:00:00 Orders Only Doctor Unassigned, [place] [facility] 1.2.840.114 350.1.13.10 4.2.7.2.686 [id number] 2019-03-31 00:00:00 2019-03-31 00:00:00 Abstract J Carlos Reynoso [facility] MEDICAL SUPERVISOR [facility] MATERNAL & CHILD [facility] 1.2.840.114 350.1.13.10 4.2.7.2.686 [id number] 2019-03-30 08:28:33 2019-03-30 10:04:26 Routine Visit Radha Roldan [facility] MEDICAL SUPERVISOR [facility] MATERNAL & CHILD [facility] 1.2.840.114 350.1.13.10 4.2.7.2.686 [id number] 2019-03-28 00:00:00 2019-03-28 00:00:00 Orders Only Doctor Unassigned, [place] [facility] 1.2.840.114 350.1.13.10 4.2.7.2.686 [id number] 2019-03-20 00:00:00 2019-03-20 00:00:00 Orders Only Doctor Unassigned, [place] [facility] 1.2.840.114 350.1.13.10 4.2.7.2.686 [id number] 2019-03-13 00:00:00 2019-03-13 00:00:00 Orders Only Doctor Unassigned, [place] [facility] 1.2.840.114 350.1.13.10 4.2.7.2.686 [id number] 2019-03-06 08:27:06 2019-03-06 08:28:14 Routine Visit 2, Ang-Rmchp Nst Ultrasound [facility] MEDICAL SUPERVISOR [facility] 1.2.840.114 350.1.13.10 4.2.7.2.686 [id number] 2019-03-06 08:15:00 2019-03-06 08:28:14 Outpatient R RADHA ROLDAN [facility] [id number] [facility] 2019-01-22 00:00:00 2019-01-22 00:00:00 Orders Only Doctor Unassigned, [place] [facility] 1.2.840.114 350.1.13.10 4.2.7.2.686 [id number] Results Test Description Test Time Test Comments Results Result Co mments Source [facility] [id number] 23:55:37* Test Item Value Reference Range Interpretation Comme nts POCT Molecular Strep (test c ode = 08068-7) Positive Negative A Lab Interpretation (test cod e = 57012-1) Abnormal [facility]. METABOLIC PANEL (77230)2022-02-25 06:42:02* Test Item Value Reference Range Interpretation Comme nts NA (test code = 1335621117) 137 mmol/L 135-145 K (test code = 3010193423) 4.4 mmol/L 3.5-5.0 CL (test code = 7340415388) 107 mmol/L 98-108 CO2 TOTAL (test code = 6011129748) 16 mmol/L 23-31 L AGAP (test code = 9068182873) 2-16 BUN (test code = 9342938367) 19 mg/dL 7-23 GLUCOSE (test code = 1867452979) 256 mg/dL 70-110 H CREATININE (test code = 1208269236) 0.31 mg/dL 0.50-1.04 L TOTAL BILI (test code = 5322345866) 1.1 mg/dL 0.1-1.1 CALCIUM (test code = 3044153128) 9.5 mg/dL 8.6-10.6 T PROTEIN (test code = 4932915465) 8.0 g/dL 6.3-8.2 ALBUMIN (test code = 4401480973) 5.0 g/dL 3.5-5.0 ALK PHOS (test code = 3603177633) 60 U/L 34-122 ALTv (test code = 1742-6) 22 U/L 5-35 AST(SGOT) (test code = 1431665570) 30 U/L 13-40 eGFR (test code = 8692968964) mL/min/1.73m2 JENNIFER (test code = JENNIFER) Association of Glomerular Filtration Rate (GFR) and Staging of Kidney Disease* + --+ --+ ------+| GFR (mL/min/1.73 m2) ?| With Kidney Damage ?| ?Without Kidney Damage+ --------+ --------+ +| ?>90 ?| ?Stage one ?| ? Normal ?+ ---+ ---+ -------+| ?60-89 ?| ?Stage two ?| ? Decreased GFR ? + --+ --+ ------+| ?30-59 ?| ?Stage three ?| ? Stage three ? + --+ --+ ------+| ?15-29 ?| ?Stage four ? | ? Stage four ?+ ---+ ---+ -------+| ?<15 (or dialysis) ? ?| ?Stage five ? | ? Stage five ?+ ---+ ---+ -------+ *Each stage assumes the associated GFR level has been in effect for at least three months. ?Stages 1 to 5, with or without kidney disease, indicate chronic kidney disease. Notes: Determination of stages one and two (with eGFR >59mL/min/1.73 m2) requires estimation of kidney damage for at least three months as defined by structural or functional abnormalities of the kidney, manifested by either:Pathological abnormalities or Markers of kidney damage (including abnormalities in the composition of the blood or urine or abnormalities in imaging tests). Lab Interpretation (test code = 25544-0) Abnormal [facility], [id number] 06:41:57* Test Item Value Reference Range Interpretation Comme nts PREG SERUM (test code = 3765575178) Negative JENNIFER (test code = JENNIFER) Less than 10 IU/L. ?If low titer or ectopic is suspected, resubmit specimen in 48-72 hours. [facility]41:21* Test Item Value Reference Range Interpretation Comme nts LIPASE (test code = 4757308680) 167 U/L 0-220 Lab Interpretation (test cod e = 59897-1) Normal [facility] WITH [id number] 06:13:19* Test Item Value Reference Range Interpretation Comme nts WBC (test code = 6690-2) See_Comment H [Automated message] The system which generated this result transmitted reference range: 4.30 - 11.10 10*3/?L. The reference range was not used to interpret this result as normal/abnormal. RBC (test code = 789-8) See_Comment H [Automated message] The system which generated this result transmitted reference range: 3.93 - 5.25 10*6/?L. The reference range was not used to interpret this result as normal/abnormal. HGB (test code = 718-7) 16.2 g/dL 11.6-15.0 H HCT (test code = 4544-3) 46.5 % 35.7-45.2 H MCV (test code = 787-2) 80.7 fL 80.6-95.5 MCH (test code = 785-6) 28.1 pg 25.9-32.8 MCHC (test code = 786-4) 34.8 g/dL 31.6-35.1 RDW-SD (test code = 71209-5) 37.2 fL 39.0-49.9 L RDW-CV (test code = 788-0) 13.0 % 12.0-15.5 PLT (test code = 777-3) See_Comment [Automated message] The system which generated this result transmitted reference range: 166 - 358 10*3/?L. The reference range was not used to interpret this result as normal/abnormal. MPV (test code = 83802-8) 10.5 fL 9.5-12.9 NRBC/100 WBC (test code = 2034206899) See_Comment [Automated message] The system which generated this result transmitted reference range: 0.0 - 10.0 /100 WBCs. The reference range was not used to interpret this result as normal/abnormal. NRBC x10^3 (test code = 4088881197) See_Comment [Automated message] The system which generated this result transmitted reference range: 10*3/?L. The reference range was not used to interpret this result as normal/abnormal. GRAN MAT (NEUT) % (test code = 770-8) 91.8 % IMM GRAN % (test code = 4325872670) 0.40 % LYMPH % (test code = 736-9) 4.8 % MONO % (test code = 5905-5) 2.8 % EOS % (test code = 713-8) 0.0 % BASO % (test code = 706-2) 0.2 % GRAN MAT x10^3(ANC) (test code = 1433193481) 10.61 10*3/uL 1.88-7.09 H IMM GRAN x10^3 (test code = 9675075551) 0.05 10*3/uL 0.00-0.06 LYMPH x10^3 (test code = 731-0) 0.56 10*3/uL 1.32-3.29 L MONO x10^3 (test code = 742-7) 0.32 10*3/uL 0.33-0.92 L EOS x10^3 (test code = 711-2) 0.03-0.39 L BASO x10^3 (test code = 704-7) 0.01-0.07 Lab Interpretation (test code = 64055-4) Abnormal [facility] GLUCOSE (AUTOMATED)2021-12-19 14:56:14* Test Item Value Reference Range Interpretation Comme nts POCT GLU (test code = 8747220117) 237 mg/dL 70-110 H Lab Interpretation (test cod e = 44715-4) Abnormal [facility] GLUCOSE (AUTOMATED)2021-12-19 12:22:33* Test Item Value Reference Range Interpretation Comme nts POCT GLU (test code = 8577079600) 333 mg/dL 70-110 H Lab Interpretation (test cod e = 44372-0) Abnormal [facility] GLUCOSE(AGE >30DAYS)2021-12-19 12:19:00* Test Item Value Reference Range Interpretation Comme nts POCT Glu (age>30days) (test code = 3342) 333 mg/dL 70-110 A Lab Interpretation (test cod e = 57680-2) [facility] [id number] 09:16:45* Test Item Value Reference Range Interpretation Comme nts PREG SERUM (test code = 5999118504) Negative JENNIFER (test code = JENNIFER) Less than 10 IU/L. ?If low titer or ectopic is suspected, resubmit specimen in 48-72 hours. [facility]. METABOLIC PANEL (79775)2021-12-19 09:16:15* Test Item Value Reference Range Interpretation Comme nts NA (test code = 5799478027) 137 mmol/L 135-145 K (test code = 7132624480) 4.0 mmol/L 3.5-5 CL (test code = 4285253629) 101 mmol/L 98-108 CO2 TOTAL (test code = 0052265723) 25 mmol/L 23-31 AGAP (test code = 4393279439) 2-16 BUN (test code = 5332787655) 16 mg/dL 7-23 GLUCOSE (test code = 5428443756) 341 mg/dL 70-110 H CREATININE (test code = 3893471103) 0.41 mg/dL 0.5-1.04 L TOTAL BILI (test code = 4820473950) 0.4 mg/dL 0.1-1.1 CALCIUM (test code = 9372271167) 9.2 mg/dL 8.6-10.6 T PROTEIN (test code = 1304782856) 7.7 g/dL 6.3-8.2 ALBUMIN (test code = 4628086392) 4.8 g/dL 3.5-5 ALK PHOS (test code = 1811192991) 90 U/L 34-122 ALTv (test code = 1742-6) 24 U/L 5-35 AST(SGOT) (test code = 6949990132) 22 U/L 13-40 eGFR (test code = 2152739350) mL/min/1.73m2 JENNIFER (test code = JENNIFER) Association of Glomerular Filtration Rate (GFR) and Staging of Kidney Disease* + --+ --+ ------+| GFR (mL/min/1.73 m2) ?| With Kidney Damage ?| ?Without Kidney Damage+ --------+ --------+ +| ?>90 ?| ?Stage one ?| ? Normal ?+ ---+ ---+ -------+| ?60-89 ?| ?Stage two ?| ? Decreased GFR ? + --+ --+ ------+| ?30-59 ?| ?Stage three ?| ? Stage three ? + --+ --+ ------+| ?15-29 ?| ?Stage four ? | ? Stage four ?+ ---+ ---+ -------+| ?<15 (or dialysis) ? ?| ?Stage five ? | ? Stage five ?+ ---+ ---+ -------+ *Each stage assumes the associated GFR level has been in effect for at least three months. ?Stages 1 to 5, with or without kidney disease, indicate chronic kidney disease. Notes: Determination of stages one and two (with eGFR >59mL/min/1.73 m2) requires estimation of kidney damage for at least three months as defined by structural or functional abnormalities of the kidney, manifested by either:Pathological abnormalities or Markers of kidney damage (including abnormalities in the composition of the blood or urine or abnormalities in imaging tests). Lab Interpretation (test code = 60431-4) [facility] Test Item Value Reference Range Interpretation Comme [facility] LIPASE (test code = 5667916404) 562 U/L 0-220 H Lab Interpretation (test cod e = 51602-1) [facility] [id number] 09:15:00* Test Item Value Reference Range Interpretation Comme nts POCT PREG (test code = 1605) negative On board controls acceptable with C Line (test code = 3574) present POCT PREG LOT # (test code = 3575) [id number] POCT PREG TEST DATE ( test code = 3576) 2023-05-06 Lab Interpretation (test cod e = 63993-8) Normal [facility] WITH [id number] 09:05:55* Test Item Value Reference Range Interpretation Comme nts WBC (test code = 6690-2) See_Comment [Automated messa ge] The system which generated this result transmitted reference range: 4.30 - 11.10 10*3/?L. The reference range was not used to interpret this result as normal/abnormal. RBC (test code = 789-8) See_Comment H [Automated messa ge] The system which generated this result transmitted reference range: 3.93 - 5.25 10*6/?L. The reference range was not used to interpret this result as normal/abnormal. HGB (test code = 718-7) 17.7 g/dL 11.6-15 H HCT (test code = 4544-3) 50.2 % 35.7-45.2 H MCV (test code = 787-2) 80.3 fL 80.6-95.5 L MCH (test code = 785-6) 28.3 pg 25.9-32.8 MCHC (test code = 786-4) 35.3 g/dL 31.6-35.1 H RDW-SD (test code = 37181-1) 35.7 fL 39-49.9 L RDW-CV (test code = 788-0) 12.5 % 12-15.5 PLT (test code = 777-3) See_Comment [Automated messa ge] The system which generated this result transmitted reference range: 166 - 358 10*3/?L. The reference range was not used to interpret this result as normal/abnormal. MPV (test code = 85293-9) 10.7 fL 9.5-12.9 NRBC/100 WBC (test code = 3577881784) See_Comment [Automated Xiimo ssage] The system which generated this result transmitted reference range: 0.0 - 10.0 /100 WBCs. The reference range was not used to interpret this result as normal/abnormal. NRBC x10^3 (test code = 6572111444) See_Comment [Automated messa ge] The system which generated this result transmitted reference range: 10*3/?L. The reference range was not used to interpret this result as normal/abnormal. GRAN MAT (NEUT) % (test code = 770-8) 66.3 % IMM GRAN % (test code = 0541815731) 0.80 % LYMPH % (test code = 736-9) 25.1 % MONO % (test code = 5905-5) 6.3 % EOS % (test code = 713-8) 1.1 % BASO % (test code = 706-2) 0.4 % GRAN MAT x10^3(ANC) (test code = 8081672704) 5.93 10*3/uL 1.88-7.09 IMM GRAN x10^3 (test code = 6631382786) 0.07 10*3/uL 0-0.06 H LYMPH x10^3 (test code = 731-0) 2.24 10*3/uL 1.32-3.29 MONO x10^3 (test code = 742-7) 0.56 10*3/uL 0.33-0.92 EOS x10^3 (test code = 711-2) 0.10 10*3/uL 0.03-0.39 BASO x10^3 (test code = 704-7) 0.04 10*3/uL 0.01-0.07 Lab Interpretation (test code = 74164-1) Abnormal [facility] Notes Date/Time Note Provider Source 2023-12-28 10:05:21 Chief Complaint Patient presents with Sore Throat Throat Problem Fever, cough, body aches and chills. Did not do a Covid test Rosy Bashir LVN [facility]"
[2024-01-17] MEDS ORDERED: NA CHLORIDE 0.9% 1,000 ML ONE (09:11)
[2024-01-17] MEDS ORDERED: ONDANSETRON 4 MG/2 ML VIAL ONE (09:11)
[2024-01-17] MEDS ORDERED: FAMOTIDINE 20 MG/2 ML VIAL IV ONE (09:11)
[2024-01-17] MEDS ORDERED: PROMETHAZINE INJ 25 MG/ML AMP ONE (09:29)
[2024-01-17 09:42] LABS: Absolute Lymphocytes (CBC) 0.9 K/uL (0.7-4.9); Absolute Monocytes 0.4 K/uL (0.1-1.3); Absolute Neutrophil 7.5 K/uL (1.8-8.0); Basophils % 0.2 % (0-1.3); Eosinophils % 0.1 % (0-4.4); Hematocrit 41.4 % (36.0-45.0); Hemoglobin 14.2 g/dL (12.0-15.0); Lymphocytes % 10.4 % (15.3-44.8); MCH 27.7 pg (27.0-35.0); MCHC 34.2 g/dL (32.0-36.0); MCV 81.1 fL (80-100); MPV 8.2 fL (7.6-11.3); Neutrophils % 85.3 % (41.7-73.7); Platelets 190 thou/uL (152-406); RBC Red Blood Cell Count 5.11 M/uL (3.86-4.86); Red Cell Distribution Width 14.6 % (12.1-15.2)
[2024-01-17 09:48] LABS: Specific Gravity 1.025 (1.005-1.030)
[2024-01-17 09:50] LABS: Specific Gravity 1.025 (1.005-1.030); Urine Bacteria None Seen /HPF (<20); Urine Bilirubin NEGATIVE (Negative); Urine Blood Negative (Negative); Urine Clarity Extremely Turbid (Clear); Urine Color Light-Yellow (Yellow); Urine Culture Reflex Order NOT NEEDED; Urine Glucose 2+ (Negative); Urine Ketones NEGATIVE (Negative); Urine Microscopic Reflex YN ORDER UMIC; Urine Mucus 1+ /HPF (None Seen); Urine Nitrite NEGATIVE (Negative); Urine Protein TRACE (Negative); Urine RBC <5 /HPF (None Seen); Urine Urobilinogen Normal (Normal); Urine WBC <5 /HPF (<5); Urine pH 5.5 (5.0-7.0)
[2024-01-17 10:14] LABS: Blood Morphology Comment NOT SEEN (NOT SEEN); Platelet Estimate ADEQ; White Blood Cell Scan OK (OK)
[2024-01-17 10:46] LABS: ALT/SGPT 17 U/L (13-56); Albumin 3.4 g/dL (3.4-5.0); Alkaline Phosphatase 43 U/L (45-117); Anion Gap 10.6 mEq/L (5.0-15.0); BUN Blood Urea Nitrogen 11 mg/dL (7-18); Bicarbonate 22 mEq/L (21-32); Bilirubin Total 0.6 mg/dL (0.2-1.0); Globulin 3.4 g/dL (2.3-3.5); Glomerular Filtration Rate 120 ml/min (=/>90); Glucose Level 160 mg/dL (74-106); HCG, Quantitative 41000 mIU/mL (1-3); Lipase 42 U/L (13-75); Potassium 3.6 mEq/L (3.5-5.1); Protein, Total 6.8 g/dL (6.4-8.2); Sodium Level 137 mEq/L (136-145)
[2024-01-17 10:47] LABS: AST/SGOT < 10 U/L (15-37)
--- NOTE | 2024-01-17 12:11 | ER ---
Nurse's Notes [facility] Name: Tatiana Rouse Age: 38 yrs Sex: Female : 1985 Arrival Date: 01/17/2024 Time: 09:01 Bed 19 Private MD: Diagnosis: Mild hyperemesis gravidarum;Less than 8 weeks gestation of ;Other specified related conditions, first trimester;Vomiting Presentation: 01/16 09:08 Chief complaint: Patient states: N/V x4 DAYS, +UPT AT HOME WITH H/O BTL. Coronavirus ll1 screen: Client denies travel out of the [place] in the last 14 days. nausea, vomiting. Client presents with at least one sign or symptom that may indicate coronavirus-19. Standard/surgical mask placed on the client. Ebola Screen: Patient denies travel to an Ebola-affected area in the 21 days before illness onset. Initial Sepsis Screen: Does the patient meet any 2 criteria? No. Patient's initial sepsis screen is negative. Does the patient have a suspected source of infection? No. Patient's initial sepsis screen is negative. Risk Assessment: Do you want to hurt yourself or someone else? Patient reports no desire to harm self or others. 09:08 Method Of Arrival: Ambulatory ll1 09:08 Acuity: WARREN 3 ll1 09:35 Onset of symptoms is unknown. bp Triage Assessment: 09:08 General: Appears distressed, uncomfortable, Behavior is cooperative, appropriate for ll1 age. GI: Reports nausea, vomiting. Historical: - Allergies: 09:05 No Known Allergies; ll1 - PMHx: 09:05 Diabetes - NIDDM; Pancreatitis; ll1 - Immunization history:: Adult Immunizations up to date. - Infectious Disease History:: Denies. - Social history:: Smoking status: Patient denies any tobacco usage or history of. Screenin:35 [facility] ED Fall Risk Assessment (Adult) History of falling in the last 3 months, bp including since admission No falls in past 3 months (0 pts) Confusion or Disorientation No (0 pts) Intoxicated or Sedated No (0 pts) Impaired Gait No (0 pts) Mobility Assist Device Used No (0 pt) Altered Elimination No (0 pt) Score/Fall Risk Level 0 - 2 = Low Risk. Abuse screen: Denies threats or abuse. Denies injuries from another. Nutritional screening: No deficits noted. Tuberculosis screening: No symptoms or risk factors identified. Assessment: 09:10 General: Appears distressed, Behavior is cooperative, appropriate for age, anxious. bp Pain: Denies pain. GI: Abdomen is non-distended. 11:13 Reassessment: Patient appears in no apparent distress at this time. Patient is alert, bp oriented x 3, equal unlabored respirations, skin warm/dry/pink. Patient states symptoms have improved. 12:23 Reassessment: D/C ON HOLD PENDING U/S RESULTS. bp Vital Signs: 09:35 BP 152 / 101; Pulse 87; Resp 16; Temp 98; Pulse Ox 99% ; bp 11:13 BP 147 / 91; Pulse 79; Resp 16; Pulse Ox 100% ; bp 12:22 BP 151 / 85; Pulse 85; Resp 16; Pulse Ox 99% ; bp ED Course: 09:04 Patient arrived in ED. mr 09:04 Arm band placed on Patient placed in an exam room, on a stretcher. ll1 09:05 Tristan Phoenix MD is Attending Physician. [facility] 09:05 Reid Timmons, AP is Primary Nurse. bp 09:08 Triage completed. ll1 09:30 Initial lab(s) drawn, by me, sent to lab. Urine collected: clean catch specimen, clear. bp Inserted saline lock: 20 gauge in right forearm, using aseptic technique. Blood collected. Flushed with 10 mL NS. 09:35 Patient has correct armband on for positive identification. bp 10:37 US Transvaginal Ob In Process Unspecified. EDMS 10:37 Pelvis Complete In Process Unspecified. EDMS 12:32 No provider procedures requiring assistance completed. IV discontinued, intact, bp bleeding controlled, No redness/swelling at site. Pressure dressing applied. 12:33 Provided Education on: N/A. bp Administered Medications: 09:30 Drug: Famotidine IVP 20 mg IVP once; dilute with 10 mL 0.9% NaCl; give over 2 minutes bp Route: IVP; Site: right forearm; 12:32 Follow up: Response: No adverse reaction bp 09:30 Drug: Ondansetron IVP 4 mg IVP once; over 2 minutes Route: IVP; Site: right forearm; bp 12:32 Follow up: Response: No adverse reaction bp 09:30 Drug: NS 0.9% IV 1000 ml IV at 1 bolus Per protocol; to be given as a bolus over 60 bp minutes Route: IV; Rate: 1 bolus; Site: right forearm; 12:34 Follow up: IV Status: Completed infusion; IV Intake: 1000ml bp 09:37 Drug: Promethazine IVP 25 mg IVP once Route: IVP; Site: right forearm; bp 12:32 Follow up: Response: No adverse reaction bp Medication: 12:33 VIS not applicable for this client. bp Intake: 12:34 IV: 1000ml; Total: 1000ml. bp Outcome: 12:10 Discharge ordered by . osmin 12:32 Discharged to home ambulatory, bp 12:32 Condition: stable 12:32 Discharge instructions given to patient, Instructed on discharge instructions, follow up and referral plans. medication usage, Demonstrated understanding of instructions, follow-up care, medications, Prescriptions given X 2, 12:35 Patient left the ED. bp Signatures: Dispatcher [employer] EDMS Tristan Phoenix MD MD cha Rivera, Mary, [facility] [employer], RN RN bp León Giang RN RN ll1 Corrections: (The following items were deleted from the chart) 09:36 09:08 Chief complaint: Patient states: N/V ll1 bp
--- NOTE | 2024-01-17 12:11 | EDPHYS ---
Physician Documentation [facility] Name: Tatiana Rouse Age: 38 yrs Sex: Female : 1985 Arrival Date: 01/17/2024 Time: 09: Bed 19 Private MD: ED Physician Tristan Phoenix HPI: 01/16 09:27 This 38 yrs old Female presents to ER via Ambulatory with complaints of osmin Vomiting. 09:27 The patient presents to the emergency department with nausea, vomiting, that is osmin continuous. Onset: The symptoms/episode began/occurred just prior to arrival, this morning. Possible causes: unknown, . The symptoms are aggravated by nothing. The symptoms are alleviated by nothing. Associated signs and symptoms: The patient has no apparent associated signs or symptoms. Severity of symptoms: At their worst the symptoms were moderate in the emergency department the symptoms are unchanged. Historical: - Allergies: 09: No Known Allergies; ll1 - PMHx: 09:05 Diabetes - NIDDM; Pancreatitis; ll1 - Immunization history:: Adult Immunizations up to date. - Infectious Disease History:: Denies. - Social history:: Smoking status: Patient denies any tobacco usage or history of. ROS: 09:29 Constitutional: Negative for fever, chills, and weight loss, Eyes: Negative for injury, osmin pain, redness, and discharge, ENT: Negative for injury, pain, and discharge, Neck: Negative for injury, pain, and swelling, Cardiovascular: Negative for chest pain, palpitations, and edema, Respiratory: Negative for shortness of breath, cough, wheezing, and pleuritic chest pain, Back: Negative for injury and pain, : Negative for injury, bleeding, discharge, and swelling, MS/Extremity: Negative for injury and deformity, Skin: Negative for injury, rash, and discoloration, Neuro: Negative for headache, weakness, numbness, tingling, and seizure, Psych: Negative for depression, anxiety, suicide ideation, homicidal ideation, and hallucinations, Allergy/Immunology: Negative for hives, rash, and allergies, Endocrine: Negative for neck swelling, polydipsia, polyuria, polyphagia, and marked weight changes, Hematologic/Lymphatic: Negative for swollen nodes, abnormal bleeding, and unusual bruising, :29 Abdomen/GI: Positive for abdominal pain, nausea and vomiting, Exam: 09:29 Constitutional: This is a well developed, well nourished patient who is awake, alert, osmin and in no acute distress. Head/Face: Normocephalic, atraumatic. Eyes: Pupils equal round and reactive to light, extra-ocular motions intact. Lids and lashes normal. Conjunctiva and sclera are non-icteric and not injected. Cornea within normal limits. Periorbital areas with no swelling, redness, or edema. ENT: Nares patent. No nasal discharge, no septal abnormalities noted. Tympanic membranes are normal and external auditory canals are clear. Oropharynx with no redness, swelling, or masses, exudates, or evidence of obstruction, uvula midline. Mucous membranes moist. Neck: Trachea midline, no thyromegaly or masses palpated, and no cervical lymphadenopathy. Supple, full range of motion without nuchal rigidity, or vertebral point tenderness. No Meningismus. Chest/axilla: Normal chest wall appearance and motion. Nontender with no deformity. No lesions are appreciated. Cardiovascular: Regular rate and rhythm with a normal S1 and S2. No gallops, murmurs, or rubs. Normal PMI, no JVD. No pulse deficits. Respiratory: Lungs have equal breath sounds bilaterally, clear to auscultation and percussion. No rales, rhonchi or wheezes noted. No increased work of breathing, no retractions or nasal flaring. Back: No spinal tenderness. No costovertebral tenderness. Full range of motion. Skin: Warm, dry with normal turgor. Normal color with no rashes, no lesions, and no evidence of cellulitis. MS/ Extremity: Pulses equal, no cyanosis. Neurovascular intact. Full, normal range of motion. Neuro: Awake and alert, GCS 15, oriented to person, place, time, and situation. Cranial nerves II-XII grossly intact. Motor strength 5/5 in all extremities. Sensory grossly intact. Cerebellar exam normal. Normal gait. 09:29 Abdomen/GI: Inspection: abdomen appears normal, Bowel sounds: normal, Palpation: mild abdominal tenderness, in all quadrants, Liver: no appreciated palpable abnormalities, Hernia: not appreciated, Vital Signs: 09:35 BP 152 / 101; Pulse 87; Resp 16; Temp 98; Pulse Ox 99% ; bp 11:13 BP 147 / 91; Pulse 79; Resp 16; Pulse Ox 100% ; bp 12:22 BP 151 / 85; Pulse 85; Resp 16; Pulse Ox 99% ; bp MDM: 09:05 Medical Screening Exam initiated [facility] 09:30 Differential diagnosis: Nonspecific abd pain, gastritis, cholecystitis, pancreatitis, osmin viral gastroenteritis, gastroenteritis. Differential Diagnosis sepsis, flu. Data reviewed: vital signs, nurses notes, lab test result(s). Consideration of Admission/Observation Escalation of care including admission/observation considered. I considered the following discharge prescriptions or medication management in the emergency department Medications were administered in the Emergency Department. See MAR. Test considered but Not performed: CT: no ct ab/pelvis. Historians other than the Patient: pt wll informed. Care significantly affected by the following chronic conditions: Diabetes, Obesity, pancreatitis. 01/16 09:08 Order name: CBC with Diff; Complete Time: 10:15 [facility] 01/16 09:08 Order name: CMP; Complete Time: 10:52 [facility] 01/16 09:08 Order name: Lipase; Complete Time: 10:52 [facility] 01/16 09:08 Order name: Test, Urine; Complete Time: 09:58 [facility] 01/16 09:08 Order name: Urinalysis w/ reflexes; Complete Time: 09:58 [facility] 01/16 09:47 Order name: HCG, Quantitative; Complete Time: 10:52 [facility] 01/16 09:59 Order name: Abo/rh Typing; Complete Time: 10:52 [facility] 01/16 10:14 Order name: CBC Smear Scan; Complete Time: 10:15 [facility] 01/16 09:59 Order name: US Transvaginal Ob [facility] 01/16 10:37 Order name: Pelvis Complete [facility] 01/16 09:08 Order name: IV Saline Lock; Complete Time: 09:26 [facility] 01/16 09:08 Order name: Labs collected and sent; Complete Time: 09:26 [facility] 01/16 09:46 Order name: Labs - recollect needed: green top; Complete Time: 10:06 ll1 Administered Medications: 09:30 Drug: Famotidine IVP 20 mg IVP once; dilute with 10 mL 0.9% NaCl; give over 2 minutes bp Route: IVP; Site: right forearm; 12:32 Follow up: Response: No adverse reaction bp 09:30 Drug: Ondansetron IVP 4 mg IVP once; over 2 minutes Route: IVP; Site: right forearm; bp 12:32 Follow up: Response: No adverse reaction bp 09:30 Drug: NS 0.9% IV 1000 ml IV at 1 bolus Per protocol; to be given as a bolus over 60 bp minutes Route: IV; Rate: 1 bolus; Site: right forearm; 12:34 Follow up: IV Status: Completed infusion; IV Intake: 1000ml bp 09:37 Drug: Promethazine IVP 25 mg IVP once Route: IVP; Site: right forearm; bp 12:32 Follow up: Response: No adverse reaction bp Disposition Summary: 01/17/24 12:10 Discharge Ordered Notes: Location: Home osmin Problem: new osmin Symptoms: have improved osmin Condition: Stable osmin Diagnosis - Mild hyperemesis gravidarum osmin - Less than 8 weeks gestation of osmin - Other specified related conditions, first trimester osmin - Vomiting osmin Followup: osmin - With: Private Physician - When: 2 - 3 days - Reason: Recheck today's complaints, Continuance of care, Re-evaluation by your physician Discharge Instructions: - Discharge Summary Sheet osmin - Hyperemesis Gravidarum osmin - Morning Sickness, [id number] osmin - Care osmin - First Trimester of , [id number] osmin - First Trimester of osmin - Vomiting, Adult osmin Forms: - Medication Reconciliation Form osmin - Antibiotic Education osmin - Prescription Opioid Use osmin - Patient Portal Instructions osmin - Leadership Thank You Letter osmin - Work release form bp Prescriptions: - Diclegis 10-10 mg Oral tablet, delayed release (enteric coated) - take 1 tablet ORAL route 3 times per day; 60 tablet; Refills: 0, Product osmin Selection Permitted - ondansetron 4 mg Oral Tablet,disintegrating - take 1 tablet ORAL route every 6-8 hours for 5 days as needed for nausea and osmni vomiting; 20 tablet; Refills: 0, Product Selection Permitted Signatures: Dispatcher [employer] Tristan Johnson MD MD cha Peltier, Brian RN RN León Barron RN RN ll1 Corrections: (The following items were deleted from the chart) 09:47 09:27 QUANTITATIVE HCG+C.LAB.BRZ ordered. ANDRE POWELL
[2024-01-17 12:53] VITALS: TEMP 98
[2024-01-17 12:54] VITALS: BP 151/85; O2SAT 99
--- NOTE | 2024-01-17 14:40 | RAD REPORT ---
Pelvis Complete CLINICAL INDICATION: Female 38 years old PAIN PREG TECHNIQUE: Real-time ultrasonography of the pelvis was performed performed transvaginally.. Color and spectral Doppler evaluation of the ovaries was performed. [id number]. COMPARISON: No prior exam. FINDINGS: UTERUS: There is an intrauterine gestational sac. This contains a yolk sac and pole. [place]-rump length: 1.2 cm which estimates gestational age at 7 week 3 day. A heart rate is detected at 181 bpm. Small subchorionic hemorrhage. No free fluid is seen in the pelvis. RIGHT OVARY: Normal flow without focal mass. LEFT OVARY: Normal flow without focal mass. IMPRESSION: Single live intrauterine with estimated age of 7 week 3 day. Small subchorionic hemorrhage.
--- NOTE | 2024-01-17 14:40 | RAD REPORT ---
EXAM: Transvaginal OB HISTORY: Abd pain;Abd cramping, COMPARISON: None TECHNIQUE: Multiple grayscale and color Doppler images were obtained in a transabdominal pelvic ultra sound. Spectral analysis of the Doppler waveforms of the ovaries were performed. FINDINGS: UTERUS: There is an intrauterine gestational sac. This contains a yolk sac and pole. [place]-rump length: 1.2 cm which estimates gestational age at 7 week 3 day. A heart rate is detected at 181 bpm. Small subchorionic hemorrhage. No free fluid is seen in the pelvis. RIGHT OVARY: Normal flow without focal mass. LEFT OVARY: Normal flow without focal mass. IMPRESSION: Single live intrauterine with estimated age of 7 week 3 day. Small subchorionic hemorrhage.
== END 2024-01-17 12:35 | disposition home or self-care (01) ==
LOC: ER 09:01
DX: O21.0 Mild hyperemesis gravidarum (principal); Z3A.01 Less than 8 weeks gestation of pregnancy
CPT/HCPCS: 85025; 81001; 36415; 86900; 81025; 86901; 84702; 83690; 80053; 76856; 76817; J2550; J2405; J7030; 96361; 96374; 96375; 99284